=== PATIENT | male | born 1965 | race Two or more races ===

== ENCOUNTER 2019-01-02 21:25 | Emergency (ER) | payer SELFPAY ==
[~2019-01-02] VITALS: Ht 167.6 cm; Wt 62.6 kg
--- NOTE | 2019-01-02 21:37 | NUR ---
[facility] BEDSIDE WITH PT.
--- NOTE | 2019-01-02 21:37 | NUR ---
URINE COLLECTED AND SENT TO LAB
--- NOTE | 2019-01-02 21:43 | NUR ---
[facility] STATES THEY ARE "UNABLE TO GET ANYTHING OUT OF HIM" AND HAVE LEFT PT'S BEDSIDE.
[2019-01-02 21:49] LABS: APPEARANCE,URINE Slightly Cloudy (CLEAR); BILIRUBIN,URINE SMALL (NEGATIVE); BLOOD, URINE Negative Ery/uL (NEGATIVE); COLOR,URINE Amber (YELLOW); KETONES,URINE Trace (NEGATIVE); LEUKOCYTE ESTERASE ,URINE Negative (NEGATIVE); NITRITE, URINE Negative (NEGATIVE); PROTEIN,URINE 30 mg/dl (NEGATIVE); UGLUCOSE Negative (NEGATIVE)
[2019-01-02 21:57] LABS: BASOPHILS # (AUTO) 0.1 /CMM (0.0-0.2); EOSINOPHILS % (AUTO) 0.6 % (0.0-6.0); HEMATOCRIT 44 % (39-51); HEMOGLOBIN 14.9 g/dL (13.5-17.5); LYMPHOCYTES # (AUTO) 1.7 /CMM (0.8-4.8); MEAN CORPUSCULAR HGB CONC 34 g/dl (31.0-36.0); MEAN CORPUSCULAR VOLUME 90 fL (80-96); MONOCYTES # (AUTO) 1.9 /CMM (0.1-1.30); MONOCYTES % (AUTO) 16.2 % (2.0-12.0); NEUTROPHILS # (AUTO) 8.2 /CMM (1.8-8.9); NEUTROPHILS % (AUTO) 68.2 % (43.0-81.0); PLATELET COUNT (AUTO) 318 /CMM (150-450); RED BLOOD CELL COUNT(AUTO) 4.93 MIL/uL (4.5-6.0)
--- NOTE | 2019-01-02 22:00 | NUR ---
[id number] C/O SI WITH PLAN TO JUMP OFF BRIDGE. +HI, STATES HE WANTS TO HURT HIS GIRLFRIEND. PT DENIES DRUG USE. PT IS AAOX4. PT AMBULATED WITH STEADY GAIT NOTED. NO S/S OF ACUTE DISTRESS NOTED. RR EVEN AND UNLABORED. PT PLACED ON MONITOR AND POX. SI PRECAUTIONS IN PLACE. WILL CONTINUE TO MONITOR PT FOR SAFETY.
[2019-01-02 22:04] LABS: BACTERIA,URINE Few /HPF (None Seen); MUCUS,URINE Many /LPF (None Seen); RBC,URINE 0-2 /HPF (0-2); SQUAMOUS EPITHELIAL CELL,UR Few /HPF (None Seen); WBC,URINE 0-2 /HPF (0-3)
[2019-01-02 22:08] LABS: CALCIUM, SERUM 9.7 mg/dL (8.5-10.1); CARBON DIOXIDE 31 mmol/L (21-32); CHLORIDE 92 mmol/L (98-107); CREATININE 0.8 mg/dL (0.6-1.3); GLUCOSE 86 mg/dL (74-106); POTASSIUM 3.6 mmol/L (3.5-5.1); SODIUM SERUM 130 mmol/L (136-145); UREA NITROGEN, BLOOD 22 mg/dL (7-18)
[2019-01-02 22:10] LABS: ALANINE AMINOTRANSFERASE 39 U/L (12-78); ALBUMIN 4.6 g/dL (3.4-5.0); ALCOHOL, BLOOD < 3 mg/dL (0-0); ALKALINE PHOSPHATASE 116 U/L (46-116); ASPARTATE AMINOTRANSFERASE 81 U/L (15-37); BILIRUBIN,DIRECT 0.6 mg/dL (0.0-0.2); BILIRUBIN,TOTAL 1.4 mg/dL (0.2-1.0); TOTAL PROTEIN, SERUM 8.5 g/dL (6.4-8.2)
[2019-01-02 22:14] LABS: ACETAMINOPHEN 0 ug/ml (10-30); SALICYLATE 1.9 mg/dL (2.8-20.0)
[2019-01-02 22:44] LABS: LYMPHOCYTES % (MANUAL) 12 % (16-48); NEUTROPHILS % (MANUAL) 76 (42-76)
[2019-01-02 22:45] LABS: MONOCYTES % (MANUAL) 12 % (0-11.0)
--- NOTE | 2019-01-03 01:20 | NUR ---
[facility] PAGED FOR PSYCHIATRIC EVALUTATION
--- NOTE | 2019-01-03 03:05 | NUR ---
[facility] FOR PSYCHIATRIC EVALUATION
--- NOTE | 2019-01-03 06:23 | NUR ---
PT REFUSED ALL RESOURCES AND BEGAN WALKING OUT. STEADY GAIT NOTED. PT'S BELONGINGS PROVIDED BACK TO PT. PER MD AND CRISIS CUPOLA TAPPER, PT IS CLEAR FOR DISCHARGE
--- NOTE | 2019-01-03 06:24 | NUR ---
Patient discharged to home in stable condition. Written and verbal after care instructions given, however pt refused. Patient verbalizes understanding of instructions and left without taking paperwork.
[2019-01-03 06:25] VITALS: BP 129/81
== END 2019-01-03 06:30 | disposition home or self-care (01) ==
LOC: ER 21:27
DX: F32.9 Major depressive disorder, single episode, unspecified (principal); F17.200 Nicotine dependence, unspecified, uncomplicated; Z59.0 Homelessness
CPT/HCPCS: 36415; 80048; 80076; 80305; 80307; 80329; 81001; 85025; 99284; G0480; 81000-TC

== ENCOUNTER 2020-01-11 13:14 | Emergency (ER) | payer SELFPAY ==
[~2020-01-11] VITALS: Ht 182.9 cm; Wt 81.6 kg
--- NOTE | 2020-01-11 14:07 | NUR ---
MAYEP PA AT BEDSIDE FOR EVAL.
--- NOTE | 2020-01-11 14:30 | NUR ---
PT TO RADIOLOGY FOR HEAD CT SCAN VIA [facility].
--- NOTE | 2020-01-11 16:59 | NUR ---
PT WANTS TO LEAVE ED. PT IS MEDICALLY CLEARED. REFUSED TO SIGN HOMELESS WAIVER.
[2020-01-11 17:04] VITALS: BP 132/76
== END 2020-01-11 17:04 | disposition home or self-care (01) ==
LOC: ER 13:18
DX: S09.8XXA Other specified injuries of head, initial encounter (principal); F10.10 Alcohol abuse, uncomplicated; R51 Headache; R41.82 Altered mental status, unspecified; Y90.9 Presence of alcohol in blood, level not specified; Z59.0 Homelessness; W01.0XXA Fall on same level from slipping, tripping and stumbling without subsequent striking against object, initial encounter; Y93.89 Activity, other specified; Y92.89 Other specified places as the place of occurrence of the external cause; Y99.8 Other external cause status
CPT/HCPCS: 70450-TC